=== PATIENT | male | born 1955 | race Caucasian/White ===

== ENCOUNTER 2019-06-29 08:32 | Emergency (ER) | payer BC ==
--- NOTE | 2019-06-29 09:38 | CR ---
[id number] RAD/RAD Ankle Left 3V Min EXAM: RAD Ankle Left 3V Min CLINICAL DATA: TRAUMA COMPARISON: NO PREVIOUS SIMILAR EXAM IS AVAILABLE. FINDINGS: No fracture or dislocation is seen. There is no radiopaque foreign body in the soft tissues. There is no air in the soft tissues. There is no cortical thickening or periosteal reaction either. IMPRESSION: NEGATIVE PLAIN FILM EXAM. Dalton Dee MD 06/29/19 0936 Thank you for allowing us to participate in the care of your patient.
[2019-06-29] MEDS ORDERED: Acetaminophen/HYDROcodone 325-5 MG Tab PO ONE (09:39)
[2019-06-29] MEDS ORDERED: cloNIDine 0.1 MG Tab PO ONE (09:40)
[2019-06-29] MEDS ORDERED: Metoprolol Tartrate 50 MG Tab PO ONE (10:31)
[2019-06-29 11:04] LABS: ANION GAP 13.5 mmol/L (10-20); CHLORIDE,CL 105 mmol/L (98-107); SODIUM,NA 141 mmol/L (136-145)
--- NOTE | 2019-06-29 11:26 | EDM.PDOC ---
ED HPI GENERAL MEDICAL PROBLEM - General Chief Complaint: Lower Extremity Injury/Pain Stated Complaint: FELL Time Seen by Provider: 06/29/19 08:35 Source of Information: Reports: Patient History Limitations: Reports: No Limitations - History of Present Illness INITIAL COMMENTS - FREE TEXT/NARRATIVE: Pt. presents to ER with complaints of injury to L ankle. He states that he was walking out to his vehicle this AM and slipped on the ice. He complains primarily of L medial ankle pain. No injury to the tib/fib, knee, thigh or hip. He did not strike his head in the fall. Pt. denies injury elsewhere. Pt. was found to be quite hypertensive on arrival to ED this AM. He states that he has not been experiencing any chest pain, shortness of breath, or headache. He has no known history of HTN in the past; BP last in the clinic was 136/84. He states that he is not a smoker. He states that he has been feeling fine. Denies any difficulty with speech or ambulation. He states that the discomfort in his ankle is about a 7, but much less if he is not bearing weight. Onset: Today Onset Date: 06/29/19 Location: Reports: Lower Extremity, Left, Generalized Quality: Reports: Ache Severity: Moderate Improves with: Reports: Rest Worsens with: Reports: Movement Left Ankle Pain Score (Numeric/FACES): 8 - Related Data Allergies Allergy/AdvReac Type Severity Reaction Status Date / Time No Known Allergies Allergy Verified 06/29/19 09:01 Home Meds: Home Meds . [No Known Home Meds] 06/29/19 [History] Past Medical History - Past Health History Medical/Surgical History: Denies Medical/Surgical History Social & Family History - Tobacco Use Smoking Status *Q: Unknown Ever Smoked Review of Systems - Review of Systems Review Of Systems: See Below Constitutional: Reports: No Symptoms Eyes: Reports: No Symptoms Ears: Reports: No Symptoms Nose: Reports: No Symptoms Mouth/Throat: Reports: No Symptoms Respiratory: Reports: No Symptoms Cardiovascular: Reports: No Symptoms GI/Abdominal: Reports: No Symptoms Genitourinary: Reports: No Symptoms Musculoskeletal: Reports: Joint Pain, Joint Swelling, Other (L ankle pain/ swelling) Skin: Reports: No Symptoms Neurological: Reports: No Symptoms Psychiatric: Reports: No Symptoms ED EXAM, GENERAL - Physical Exam Exam: See Below Exam Limited By: No Limitations General Appearance: Alert, WD/WN, No Apparent Distress Eye Exam: Bilateral Eye: EOMI, Normal Fundi, Normal Inspection, PERRL Nose: Normal Inspection, Normal Mucosa, No Blood Throat/Mouth: Normal Inspection, Normal Lips, Normal Teeth, Normal Gums, Normal Oropharynx, Normal Voice, No Airway Compromise Head: Atraumatic, Normocephalic Neck: Normal Inspection, Supple, Non-Tender, Full Range of Motion Respiratory/Chest: No Respiratory Distress, Lungs Clear, Normal Breath Sounds Cardiovascular: Normal Peripheral Pulses, Regular Rate, Rhythm, No Edema, No Gallop, No JVD, No Murmur, No Rub Peripheral Pulses: 4+: Radial (L), Popliteal (R), Posterior Tibial (L), Dorsalis Pedis (L), Dorsalis Pedis (R) GI/Abdominal: Normal Bowel Sounds, Soft, Non-Tender, No Organomegaly, No Distention, No Abnormal Bruit, No Mass, Pelvis Stable (Male) Exam: Deferred Rectal (Males) Exam: Deferred Back Exam: Normal Inspection, Full Range of Motion Extremities: Normal Inspection, Normal Range of Motion, Non-Tender, No Pedal Edema, Normal Capillary Refill Neurological: Alert, Oriented, CN II-XII Intact, Normal Cognition, Normal Gait, Normal Reflexes, No Motor/Sensory Deficits Psychiatric: Normal Affect, Normal Mood Skin Exam: Warm, Dry, Intact, Normal Color, No Rash Lymphatic: No Adenopathy EKG INTERPRETATION Rhythm: NSR [place]: Normal P-Wave: Present QRS: Normal ST-T: Normal QT: Normal Course - Vital Signs Last Recorded V/S: Last Vital Signs Temp 36.8 C 06/29/19 08:35 Pulse 71 06/29/19 10:37 Resp 18 06/29/19 08:35 BP 170/110 H 06/29/19 11:05 Pulse Ox 96 06/29/19 08:35 - Orders/Labs/Meds Orders: Active Orders 24 hr Category Date Time Status EKG Documentation Completion [RC] STAT Care 06/29/19 10:28 Active Labs: Laboratory Tests 06/29/19 06/29/19 Range/Units 10:36 10:36 WBC 6.1 (4.0-10.0) x10^3/uL RBC 3.96 L (4.5-6.0) x10^6/uL Hgb 12.6 L (14.0-18.0) g/dL Hct 37.7 L (40.0-52.0) % MCV 95.2 H (78.0-93.0) fL MCH 31.8 (26.0-32.0) pg MCHC 33.4 (32.0-36.0) g/dL RDW Coeff of [place] 12.4 (10.0-15.0) % Plt Count 221 (130-400) x10^3/uL Neut % (Auto) 79.0 (50.0-80.0) % Lymph % (Auto) 14.8 L (25.0-50.0) % [place] % (Auto) 5.2 (2.0-11.0) % Eos % (Auto) 0.7 (0.0-4.0) % Baso % (Auto) 0.3 (0.2-1.2) % Sodium 141 (136-145) mmol/L Potassium 4.5 (3.5-5.1) mmol/L Chloride 105 (98-107) mmol/L Carbon Dioxide 27 (21-32) mmol/L Anion Gap 13.5 (10-20) mmol/L BUN 16 (7-18) mg/dL Creatinine 1.2 (0.70-1.30) mg/dL Est Cr Clr Drug Dosing TNP Estimated GFR (MDRD) > 60 Glucose 118 H (74-106) mg/dL Calcium 8.8 (8.5-10.1) mg/dL Corrected Calcium 9.20 (8.5-10.1) mg/dL Total Bilirubin 0.6 (0.2-1.0) mg/dL AST 16 (15-37) U/L ALT 26 (16-63) U/L Alkaline Phosphatase 46 (46-116) U/L Troponin I < 0.017 (<=0.056) ng/mL Total Protein 8.6 H (6.4-8.2) g/dL Albumin 3.5 (3.4-5.0) g/dL Globulin 5.1 Albumin/Globulin Ratio 0.69 Meds: Medications Discontinued Medications Generic Name Dose Route Start Last Admin Trade Name Freq PRN Reason Stop Dose Admin Hydrocodone Bitart/Acetaminophen 1 tab 06/29/19 09:39 06/29/19 09:45 Oden 325-5 Mg PO 06/29/19 09:40 1 tab ONETIME ONE Administration Clonidine HCl 0.1 mg 06/29/19 09:40 06/29/19 09:45 Catapres PO 06/29/19 09:41 0.1 mg ONETIME ONE Administration Metoprolol Tartrate 50 mg 06/29/19 10:31 06/29/19 10:37 Lopressor PO 06/29/19 10:32 50 mg ONETIME ONE Administration - Radiology Interpretation Free Text/Narrative:: no fracture/dislocation of L ankle Departure - Departure Time of Disposition: 11:35 Disposition: Home, Self-Care 01 Clinical Impression: Ankle sprain, Hypertension - Discharge Information Instructions: Ankle Sprain, Lisinopril tablets, Hypertension Referrals: Jovan Rodriguez, [facility] [Primary Care Provider] - Forms: ED Department Discharge Additional Instructions: Home to rest. Elevate and ice ankle for 15 min every hour Lisinopril 10mg once daily recheck in clinic in 10 days Sepsis Event Note - Evaluation Sepsis Screening Result: No Definite Risk - Focused Exam Vital Signs: Vital Signs Temp Pulse Pulse Resp BP BP Pulse Ox 06/29/19 11:05 170/110 H 06/29/19 10:37 71 202/105 H 06/29/19 10:30 200/104 H 06/29/19 10:15 202/105 H 06/29/19 09:45 208/105 H 208/105 H 06/29/19 08:35 36.8 C 85 18 229/119 H 96 Date Exam was Performed: 06/29/19 Time Exam was Performed: 11:18 - My Orders Last 24 Hours: My Active Orders 06/29/19 10:28 EKG Documentation Completion [RC] STAT - Assessment/Plan Last 24 Hours: My Active Orders 06/29/19 10:28 EKG Documentation Completion [RC] STAT Plan: Ankle radiographs are negative. Advised to rest, ice and elevate the extremity. I am more concerned about the high blood pressure. EKG and labs were negative. Pt. offered no complaint of headache or chest pain. He was given clonidine 0.1mg PO and later some oral metoprolol. BP decreased into the 170/80 range at time of discharge. I did start him on lisinopril 10mg once daily for the hypertension. He does not appear to be in significant distress or pain. Ibuprofen as needed for discomfort. Recheck in clinic in 10 days.
== END 2019-06-29 11:18 | disposition home or self-care (01) ==
LOC: VM.ED 08:32
DX: S93.402A Sprain of unspecified ligament of left ankle, initial encounter (principal); I10 Essential (primary) hypertension; W00.0XXA Fall on same level due to ice and snow, initial encounter; Y93.01 Activity, walking, marching and hiking
CPT/HCPCS: 36415; 73610-LT; 80053; 84484; 85025; 93005; 99284-25; A9270-GY